=== PATIENT | male | born 1975 | race Caucasian/White ===

== ENCOUNTER → 2017-02-05 | Outpatient (CLI) | payer OTHER ==
[2017-02-05 12:19] LABS: BASO % 1.4 %; BASO ABS # 0.09 K/uL (0-0.2); COMPLETE YES; EOS % 3.2 %; HEMATOCRIT 47.4 % (42-52); IG% 0.9 %; LYMPH % 21.8 %; LYMPH ABS # 1.44 K/uL (1.2-3.4); MEAN CELL VOLUME 83.3 fL (80-100); MEAN CORPUSCULAR HEMOGLOBIN 28.3 pg (25-34); MONO % 7.6 %; NEUT % 65.1 %; PLATELET COUNT 208 K/uL (130-400); RED BLOOD COUNT 5.69 M/uL (4.7-6.1); WHITE BLOOD COUNT 6.61 K/uL (4.8-10.8)
== END | disposition home or self-care (01) ==
LOC: C.LAB 10:22
PROVIDERS: ATTEND Podiatrist Foot & Ankle Surgery
DX: M79.674 Pain in right toe(s) (principal); R26.2 Difficulty in walking, not elsewhere classified